=== PATIENT | female | born 1965 | race Caucasian/White ===

== ENCOUNTER 2017-07-25 08:28 | Emergency (ER) | payer BC, OTHER ==
--- NOTE | 2017-07-25 09:28 | ERNOTE ---
Upper Extremity HPI - Narrative Date of Service: 07/25/17 - General Extremities Pain Location: wrist: right - injured 4-5 days ago has had no improvement Time Seen by Provider: 07/25/17 08:49 Source: patient Exam Limitations: no limitations - Immun/Allergies/Home Medications Immunizations: IMMUNIZATION HX Immunizations Up to Date Yes History of Influenza Vaccine Yes Hx Pneumococcal Vaccination No Allergies/Adverse Reactions: Allergies Allergy/AdvReac Type Severity Reaction Status Date / Time sertraline AdvReac Mild Headache Verified 07/25/17 08:49 silver sulfadiazine AdvReac Mild RASH Verified 07/25/17 08:49 [From Silvadene] sulfamethoxazole AdvReac Mild RASH Verified 07/25/17 08:49 [From Bactrim] trimethoprim [From Bactrim] AdvReac Mild RASH Verified 07/25/17 08:49 Home Medications: HOME MEDICATIONS Naproxen Sodium [Aleve] 220 mg PO BID PRN 07/25/17 [Last Taken 07/24/17 10:00] Omeprazole 40 mg PO PRN PRN 07/25/17 [Last Taken Unknown] traMADol HCL [Ultram] 50 mg PO BID #30 tablet 07/25/17 [Last Taken Unknown] - History of Present Illness Narrative: patient injured wrist 4-5 days ago , has not improved Occurred: last week Location of Incident: work Severity: moderate Method of Injury: Reports: twisted Reason for Fall: Reports: other - no fall Loss of Consciousness: Reports: no loss of consciousness Modifying Factors - (Improves): Reports: cold therapy Modifying Factors - (Worsens): Reports: movement Associated Symptoms: Reports: weakness Other Injuries: Reports: none Review of Systems - Narrative Narrative: unremarkable - Review of Systems Constitutional: Present: See HPI EYE: Present: no symptoms reported ENT: Present: no symptoms reported Respiratory: Present: no symptoms reported Cardiology: Present: no symptoms reported Gastrointestinal/Abdominal: Present: no symptoms reported Genitourinary: Present: no symptoms reported Musculoskeletal: Present: See HPI, joint pain, joint swelling Skin: Present: no symptoms reported Neurological: Present: no symptoms reported Endocrine: Present: no symptoms reported Hematologic/Lymphatic: Present: no symptoms reported Psych: Present: no symptoms reported All Other Systems: All systems neg except as marked - Narrative Narrative: unremarkable - Patient's Past Medical History Patient History - Medical: GERD, Migraines, Seizures Patient History - Cardiac/Respiratory: No pertinent hx Patient History - Cancer: No Hx of Cancer Patient History - Surgical Procedures: Patient History - Other: None LMP (females 10-50): unknown - Family History Family History:: no untoward family reactions to anesthesia, no familial bleeding tendencies, no family history of clotting disorders, no family history of premature - Family History Mother Family History - Medical: , No pertinent hx Family History - Cardiac/Respiratory: No pertinent hx Family History - Cancer: No pertinent family hx Father Family History - Medical: No pertinent hx Family History - Cardiac/Respiratory: No pertinent hx Family History - Cancer: No pertinent family hx - Social History Living Situations: alone Abuse History: No History of abuse Psych History: No pertinent hx Smoking Status: Never smoker Have you smoked in the past 12 months: Yes Do you dip or chew tobacco: No Patient requests Smoking Cessation Consult: No Initiate information on Smoking Cessation: No Alcohol Use: none Drug Use: none - Immunizations Immunizations Up to Date: Yes Hx Pneumococcal Vaccination: No History of Influenza Vaccine: Yes Physical Exam - Physical Exam General Appearance: Present: mild distress Head Exam: Present: normal inspection, no evidence of injury Eye Exam: Normal inspection: bilateral, PERRL: bilateral, EOMI: bilateral Ears, Nose, Throat: Present: normal ENT inspection Neck: Present: normal inspection, nontender Respiratory: Present: no respiratory distress, normal breath sounds, no accessory muscle use, chest nontender, lungs clear Cardiovascular/Chest: Present: regular rate, rhythm, no murmur, normal peripheral pulses Peripheral Pulses: N=norm/S=strong/W=weak/B=bound/A=absent: Carotid (R): Normal , Carotid (L): Normal, Radial (R): Normal, Radial (L): Normal, Femoral (R): Normal, Femoral (L): Normal, Dorsalis-pedis (R): Normal, Dorsalis-pedis (L): Normal Gastrointestinal/Abdominal: Present: normal bowel sounds, nontender, nondistended, soft, no organomegaly Back Exam: Present: normal inspection, normal range of motion, no CVA tenderness , no vertebral tenderness Extremity Exam: Present: bony tenderness, joint swelling, other - right wrist, no deformity DTR: N=norm/NB=norm/brisk/A=abs/DD=dull/dimin/HC=hyperactive: Bicep (R): Normal , Bicep (L): Normal, Tricep (R): Normal, Tricep (L): Normal, Knee (R): Normal, Knee (L): Normal, Ankle (R): Normal, Ankle (L): Normal Skin Exam: Present: normal color, warm/dry Lymphatic Exam: Present: no adenopathy ED Progress - Date and Time Seen: Date and Time: 07/25/17 09:14 condition unchanged - Vital Signs Patient's Vital Signs:: I have reviewed the patient's vital signs. Vital Signs: Vital Signs 07/25/17 08:40 Temperature 36.6 C Pulse Rate 89 Respiratory 18 Rate Blood Pressure 134/95 O2 Sat by Pulse 99 Oximetry - X-Ray X-Ray #1 X-Ray: wrist - no apparent bony abnormality - Progress/Reassessment Chief Complaint: Wrist Injury/Pain Progress:: Unchanged - Transfer of Care Expected Disposition: Discharge Plan - Plan Plan: too be discharged Departure Clinical Impression: Right wrist sprain - Departure Disposition: Home self-care Condition: Fair Instructions: Wrist Pain, [id number] Referrals: Paulina Milian, [facility] [Primary Care Provider] - Prescriptions: traMADol HCL [Ultram] 50 mg PO BID #30 tablet
[2017-07-25 09:33] VITALS: BP 131/95
== END 2017-07-25 09:30 | disposition home or self-care (01) ==
LOC: ER 08:28
PROC: 2W3CX1Z Immobilization of Right Lower Arm using Splint (ICD-10-PCS; principal; 2017-07-25)
DX: S63.501A Unspecified sprain of right wrist, initial encounter; X50.1XXA Overexertion from prolonged static or awkward postures, initial encounter; K21.9 Gastro-esophageal reflux disease without esophagitis; Y92.89 Other specified places as the place of occurrence of the external cause; Y99.0 Civilian activity done for income or pay